=== PATIENT | female | born 1960 | race African-American/Black ===

== ENCOUNTER 2019-11-20 15:10 | Outpatient (RCR) | payer SELFPAY | END 2019-12-13 | LOC: OT 15:10 | PROVIDERS: ATTEND Family Medicine | DX: S62.91XD Unspecified fracture of right hand, subsequent encounter for fracture with routine healing (principal); M25.531 Pain in right wrist; M25.631 Stiffness of right wrist, not elsewhere classified; R53.1 Weakness ==

== ENCOUNTER → 2020-02-19 | Outpatient (CLI) | payer OTHER, SELFPAY ==
--- NOTE | 2020-02-19 16:11 | Diagnostic Imaging Report ---
EXAM: US ABDOMEN COMPLETE DATE: 02/19/2020 3:20 PM INDICATION: ^ABD DISTENTION ABD DISCOMFORT COMPARISON: None TECHNIQUE: Transverse and longitudinal chatterjee scale and color doppler sonographic images of the abdomen were obtained. FINDINGS: LIVER 10.6 cm in the right midclavicular line. Cirrhotic liver morphology is noted with coarsened echotexture and nodular contours. No suspicious mass by ultrasound technique. SPLEEN 11.2 cm in maximum diameter. Normal echogenicity, no masses. GALLBLADDER No gallbladder wall thickening, distension, stone, or pericholecystic fluid. Negative reported sonographic Mcfarland's sign. BILE DUCTS No intra nor extra-hepatic biliary dilation. Common bile duct measures 0.3cm PANCREAS: Visualized portions are normal. RIGHT KIDNEY: 10.3 cm Echogenicity: Normal Collecting System: No hydronephrosis Stones: None Cyst/Mass: None LEFT KIDNEY: 10.4 cm Echogenicity: Normal Collecting System: No hydronephrosis Stones: None Cyst/Mass: None VESSELS: Aorta: Visualized portions are within normal size limits Inferior Vena Cava: Visualized portions are normal Main Portal Vein: 0.9 cm, normal size with hepatopetal flow. FREE FLUID: Moderate volume ascites is noted. IMPRESSION: Cirrhotic liver morphology with moderate ascites. No suspicious mass by ultrasound technique. Signed by: Gary Miles MD on 02/19/2020 4:08 PM
== END ==
LOC: US 14:21
PROVIDERS: ATTEND Internal Medicine Gastroenterology
DX: R14.0 Abdominal distension (gaseous) (principal); R10.9 Unspecified abdominal pain
CPT/HCPCS: 76700

== ENCOUNTER → 2020-02-24 | Outpatient (CLI) | payer SELFPAY ==
[~2020-02-24] MED LIST: ALBUMIN 25% 12.5GM 50ML 100 ML IV ONE; ALBUMIN 25% 12.5GM 50ML 50 ML IV ONE; ALIGN4 MG PO
[2020-02-24 14:14] LABS: HEMOGLOBIN 11.3 g/dL (12.0-16.0)
[2020-02-24 14:26] LABS: INR 1.59; PROTHROMBIN TIME 19.7 seconds (11.9-14.5)
[2020-02-24 14:27] LABS: PARTIAL THROMBOPLASTIN TIME 37.9 seconds (23.8-35.5)
[2020-02-24 15:22] LABS: BODY FLUID APPEARANCE CLOUDY; BODY FLUID COLOR YELLOW; BODY FLUID TYPE PERITONEAL
[2020-02-24 17:03] LABS: LYMPHOCYTES,BODY FLUID 57 %; MONO/MACROPHG,BODY FLUID 38 %; NEUTROPHILS,BODY FLUID 5 %
[2020-02-24 17:15] LABS: RBC,BODY FLUID 32 cells/uL; WBC,BODY FLUID 54 cells/uL
== END ==
LOC: US 13:28
PROVIDERS: ATTEND Internal Medicine Gastroenterology
DX: R18.8 Other ascites (principal)
CPT/HCPCS: 36415; 49083; 85014; 85049; 85610; 85730; 87070; 87205; 88112; 88305; 89051

== ENCOUNTER → 2020-02-27 | Day surgery (SDC) | payer OTHER, SELFPAY ==
[~2020-02-27] MED LIST changes: -ALBUMIN 25% 12.5GM 50ML 100 ML IV ONE; -ALBUMIN 25% 12.5GM 50ML 50 ML IV ONE; +FENTANYL CITRATE/PF 100MCG/2 ML INJ ONE; +LIDOCAINE HCL 2% LOCAL INJ 5 ML SDV VIAL INJ ONE; +MIDAZOLAM HCL 2 MG/2 ML VIAL ONE; +PROPOFOL IV EMULSION 10 MG/ML 20 ML VIAL ONE; +PROPRANOLOL HCL 10 MG TAB PO ONE
[2020-02-27 08:45] VITALS: BP 130/80
== END | disposition home or self-care (01) ==
LOC: OR 05:46
PROVIDERS: ATTEND Internal Medicine Gastroenterology
DX: K58.9 Irritable bowel syndrome, unspecified (principal); I85.00 Esophageal varices without bleeding; K76.6 Portal hypertension; K31.89 Other diseases of stomach and duodenum; K29.80 Duodenitis without bleeding; Z01.810 Encounter for preprocedural cardiovascular examination; Z01.812 Encounter for preprocedural laboratory examination; Z11.59 Encounter for screening for other viral diseases
CPT/HCPCS: 43239; 88305; 88312; 93005; J2001; J2250; J2704; J3010; U0002